=== PATIENT | male | born 1955 | race African-American/Black ===

== ENCOUNTER 2025-01-18 01:05 | Emergency (ER) | payer OTHER ==
[~2025-01-18] VITALS: Ht 175.3 cm; Wt 135.0 kg
[2025-01-18 01:07] VITALS: O2SAT 99
[2025-01-18] MEDS: MORPHINE SULFATE 4 MG/ML INJ (FOR IV/IM USE) IV ONE (02:00)
[2025-01-18] MEDS: ONDANSETRON HCL 4MG/2ML INJ IV ONE (02:00)
[2025-01-18 02:20] LABS: BASOPHILS % 0.6 % (0.0-2.0); EOSINOPHILS % 2.4 % (0.0-5.0); HEMATOCRIT. 39.1 % (42.0-52.0); HEMOGLOBIN. 12.4 g/dL (14.0-18.0); LYMPHOCYTES % 18.6 % (20.0-50.0); MEAN PLATELET VOLUME 7.6 fl (7.4-10.4); MONOCYTES % 9.4 % (2.0-8.0); NEUTROPHILS % 69.0 % (40.0-76.0); PLATELET 524 x1000/uL (130-400); RED BLOOD CELL COUNT 5.20 mill/uL (4.7-6.1); RED CELL DISTRIBUTION WIDTH 14.2 % (11.6-14.6)
[2025-01-18 02:32] LABS: INR 1.0
[2025-01-18 02:43] LABS: CREATININE 1.3 mg/dL (0.6-1.3); UREA NITROGEN BLOOD 7 mg/dL (9-23)
[2025-01-18 02:44] LABS: TROPONIN I HIGH SENSITIVITY 4 ng/L (3.0-53)
[2025-01-18 02:45] LABS: ASPARTATE AMINOTRANSFERASE 38 IU/L (<34); BILIRUBIN DIRECT 0.2 mg/dL (<=3.0); BILIRUBIN TOTAL 0.5 mg/dL (0.1-1.0); PROTEIN TOTAL 6.7 g/dL (6.0-8.3)
[2025-01-18 05:24] LABS: CLARITY URINE CLEAR (CLEAR); COLOR URINE YELLOW (YELLOW); GLUCOSE URINE 3+ (NEGATIVE); KETONES URINE TRACE (NEGATIVE); LEUKOCYTE ESTERASE URINE NEGATIVE (NEGATIVE); NITRITE URINE NEGATIVE (NEGATIVE); OCCULT BLOOD URINE NEGATIVE (NEGATIVE); PH URINE 5.0 (4.5-8.0); PROTEIN URINE TRACE (NEGATIVE); SPECIFIC GRAVITY URINE 1.036 (1.005-1.030); UROBILINOGEN URINE 1.0 E.U./dL (0.2-1.0)
[2025-01-18 05:43] VITALS: TEMP 36.9
[2025-01-18 05:47] LABS: *AMPHETAMINES SCREEN URINE NEGATIVE (NEGATIVE)
[2025-01-18 05:48] LABS: *BARBITURATES SCREEN URINE NEGATIVE (NEGATIVE); *BENZODIAZEPINES SCREEN URINE NEGATIVE (NEGATIVE); *COCAINE SCREEN URINE NEGATIVE (NEGATIVE); CANNABINOID URINE SCREEN NEGATIVE (NEGATIVE); ECSTASY MDMA SCREEN URINE NEGATIVE (NEGATIVE); METHADONE URINE SCREEN NEGATIVE (NEGATIVE); OPIATES URINE SCREEN NEGATIVE (NEGATIVE); PHENCYCLIDINE URINE SCREEN NEGATIVE (NEGATIVE)
[2025-01-18 05:50] LABS: TROPONIN I HIGH SENSITIVITY < 4 ng/L (3.0-53)
[2025-01-18] MEDS ORDERED: MAG355OR21 MT (05:56)
[2025-01-18] MEDS ORDERED: ONDA4TAB50 MT (05:56)
[2025-01-18] MEDS ORDERED: ACET-2708 MT (05:56)
[2025-01-18 06:38] LABS: BACTERIA URINE TRACE; RBC URINE NONE SEEN /hpf (0-2); SQUAMOUS EPITHELIAL CELL URINE FEW /lpf (RARE/1+); WBC URINE 0-2 /hpf (0-2)
[2025-01-18 07:01] VITALS: BP 157/84; PULSE 74; RESP 22; O2SAT 95
== END 2025-01-18 07:13 | disposition home or self-care (01) ==
LOC: ER 01:05 → CMPBEDREQ 09:03
DX: R07.89 Other chest pain (principal); R11.2 Nausea with vomiting, unspecified; R06.02 Shortness of breath; E11.9 Type 2 diabetes mellitus without complications; G47.30 Sleep apnea, unspecified; I10 Essential (primary) hypertension; Z88.0 Allergy status to penicillin; Z88.8 Allergy status to other drugs, medicaments and biological substances; Z79.899 Other long term (current) drug therapy
CPT/HCPCS: 36415; 71045; 74176; 80048; 80076; 80305; 80320; 81003; 83880; 84484; 85025; 93005; 99285; G0480